=== PATIENT | female | born 1940 | race Caucasian/White ===

== ENCOUNTER → 2017-12-09 | Outpatient (CLI) | payer MEDICARE ==
--- NOTE | 2017-12-09 11:33 | CT ---
EXAMINATION TYPE: CT angio head neck DATE OF EXAM: 12/09/2017 HISTORY: Carotid stenosis COMPARISON: None CT DLP: 356 mGycm. Automated Exposure Control for Dose Reduction was Utilized. TECHNIQUE: CTA scan of the neck is performed with IV Contrast, patient injected with 65 mL of Isovue 370, axial images are obtained, coronal and sagittal reformatted images are reviewed. Three-D recons tructed images are created on an independent workstation and reviewed. FINDINGS: There is atherosclerotic change involving the distal common carotid artery and proximal rig ht ICA measuring approximately 65-70%. Mild atherosclerotic changes are seen involving the left carotid bifurcation. No definite hemodynamic stenosis. Atherosclerotic change of the aorta noted. Emphysematous changes involving the lung apices with subse gmental areas of consolidation likely related atelectasis. There is a pleural-based nodule in the lef t apex measuring 1 cm. Thyroid enhances normally. Hypertrophic and degenerative change of the spine with multilevel foramina l encroachment noted. Visualized submandibular and parotid glands are within normal limits. Visualize d portion of the orbits and intracranial structures demonstrate no abnormality. Vertebral arteries demonstrate patency. Vertebral arteries symmetric in size. IMPRESSION: 1. Findings suggest a 65-70% stenosis involving the proximal right ICA. 2. No significant hemodynamic stenosis involving the left carotid system. Mild atherosclerotic plaque noted. 3. There is a 1 cm left apical lung nodule could be correlated with dedicated CT of the chest.
== END | disposition home or self-care (01) ==
LOC: RADCTMAIN 09:37
PROVIDERS: ATTEND Surgery
DX: I65.22 Occlusion and stenosis of left carotid artery (principal)
CPT/HCPCS: 82565; 84520; 70496; 70498; 36415; Q9967

== ENCOUNTER → 2018-01-06 | Outpatient (CLI) | payer MEDICARE ==
--- NOTE | 2018-01-06 09:25 | CT ---
EXAMINATION TYPE: CT chest wo con DATE OF EXAM: 01/06/2018 COMPARISON: None HISTORY: solitary pulmonary nodule CT DLP: 584.30 mGycm, Automated exposure control for dose reduction was used. CONTRAST: Performed injected with 0 mL of Isovue 300. TECHNIQUE: Axial images were obtained at 5 mm thick sections. Reconstructed images are reviewed on [employer] computer in the coronal plane. FINDINGS: Portion of the thyroid visualized is normal. Appears be some mild compressive atelectasis within the dependent portions of the lung bases. Some ve ry subtle nodularity may be along the periphery of the right lung. Example images series 4 image 22, series 4 image 20. These demonstrate the small 2 mm peripheral densities. Some areas of pneumonitis m ay be present. Subtle area of increased density measuring 0.5 cm may be within the right middle lobe. Series 4 image 26. There is peripheral based pneumonitis change in the lateral right midlung. Series 4 image 31. Small density in the periphery of the right lung measures 0.3 cm. Series 4 image 31. The re is a 0.7 cm density within the lingula just above the diaphragm. Series 4 image 38. Compressive at electasis within the posterior medial right lung base. No enlarged mediastinal or hilar adenopathy is evident. Couple of small superior mediastinal lymph nodes are present. The ascending aorta diameter at the level of the main pulmonary artery is 3.1 cm. The main pulmonary artery diameter at the bifurcation is 2.4 cm. Coronary artery calcifications pres ent. There is a moderate size hiatal hernia present. Limited CT sections are obtained through the upper abdomen. Abdomen is essentially unremarkable. IMPRESSIONS: 1. Small peripheral right lung densities visualized on lung windows. Follow-up exam in 6 months is re commended. 2. Possible 0.7 cm nodule at the left diaphragm within the lingula. 3. Few scattered areas of pneumonitis and compressive atelectasis.
== END | disposition home or self-care (01) ==
LOC: RADCTMAIN 08:22
PROVIDERS: ATTEND Family Medicine
DX: J18.9 Pneumonia, unspecified organism (principal); J98.11 Atelectasis; J98.4 Other disorders of lung
CPT/HCPCS: 71250

== ENCOUNTER → 2018-01-22 | Outpatient (CLI) | payer MEDICARE ==
--- NOTE | 2018-01-23 10:59 | MM ---
Reason for exam: screening (asymptomatic). History: Patient is postmenopausal and has history of other cancer at age 39. Physical Findings: A clinical breast exam by your physician is recommended on an annual basis and results should be correlated with mammographic findings. MG 3D Screening Mammo W/Cad Bilateral CC and MLO view(s) were taken. No prior studies available for comparison. The breast tissue is heterogeneously dense. This may lower the sensitivity of mammography. There is a round circumscribed upper outer quadrant anterior depth left breast mass and adjacent asymmetry. The mass and asymmetry both measure 9mm. Benign appearing bilateral calcifications. No suspicious abnormality on the right. ASSESSMENT: Incomplete: need additional imaging evaluation, BI-RAD 0 RECOMMENDATION: Ultrasound of the left breast. Upper outer quadrant attention anterior depth [facility] will attempt to contact patient to return for ultrasound.
== END | disposition home or self-care (01) ==
LOC: RADMAMWWP 09:41
PROVIDERS: ATTEND Family Medicine
DX: Z12.31 Encounter for screening mammogram for malignant neoplasm of breast (principal)
CPT/HCPCS: 77063; 77067

== ENCOUNTER → 2018-02-17 | Outpatient (CLI) | payer MEDICARE ==
--- NOTE | 2018-02-17 11:33 | USB ---
Reason for exam: additional evaluation requested from abnormal screening. History: Patient is postmenopausal and has history of other cancer at age 39. Physical Findings: Nurse Summary: all soft, nodular, movable (nurse ts). US Breast Workup Limited LT Left limited breast ultrasound including focal area of concern, retroareolar and axilla demonstrates a 1.0 x 0.6 x 1.2cm cystic lesion at 12 o'clock, benign, corresponds well to the mammographic finding. These results were verbally communicated with the patient and result sheet given to the patient on 02/17/18. ASSESSMENT: Benign, BI-RAD 2 RECOMMENDATION: Return to routine screening mammogram schedule for both breasts.
== END | disposition home or self-care (01) ==
LOC: RADUSWWP 09:59
PROVIDERS: ATTEND Family Medicine
DX: R92.8 Other abnormal and inconclusive findings on diagnostic imaging of breast (principal)

== ENCOUNTER → 2019-02-14 | Outpatient (CLI) | payer MEDICARE ==
[2019-02-14 10:32] LABS: HCT 38.8 % (34.0-46.0); HGB 12.2 gm/dL (11.4-16.0); MCH 27.9 pg (25.0-35.0); MCHC 31.5 g/dL (31.0-37.0); MCV 88.5 fL (80.0-100.0); Mean Platelet Volume 7.8; Platelet Count 239 k/uL (150-450); RBC 4.38 m/uL (3.80-5.40); RDW 15.4 % (11.5-15.5); WBC 7.4 k/uL (3.8-10.6)
[2019-02-14 10:54] LABS: Magnesium 1.5 mg/dL (1.6-2.3); Potassium 5.2 mmol/L (3.5-5.1)
== END | disposition home or self-care (01) ==
LOC: LABPAT 10:13
PROVIDERS: ATTEND Internal Medicine Cardiovascular Disease
DX: Z01.812 Encounter for preprocedural laboratory examination (principal)
CPT/HCPCS: 36415; 80051; 82565; 83735; 84520; 85027

== ENCOUNTER 2019-02-16 07:17 | Day surgery (SDC) | payer MEDICARE ==
[2019-02-13 09:03] VITALS: BMI 38.9
[2019-02-16] MEDS ORDERED: SODIUM CHLORIDE 0.9% 1,000 ML in EMPTY BAG 1 BAG IV ONE (07:31)
[2019-02-16] MEDS ORDERED: NITROGLYCERIN SL TABS 0.4 MG TAB SUBLINGUAL PRN (07:31)
[2019-02-16] MEDS ORDERED: ALPRAZolam 0.25 MG TAB PO PRN (07:31)
[2019-02-16] MEDS ORDERED: ALPRAZolam 0.5 MG TAB PO PRN (07:31)
[2019-02-16] MEDS ORDERED: ATORVASTATIN 80 MG TAB PO STA (07:31)
[2019-02-16] MEDS ORDERED: ASPIRIN 325 MG TAB PO STA (07:31)
[2019-02-16 08:03] LABS: Glucose,Whole Blood 114 mg/dL (75-99)
[2019-02-16] MEDS ORDERED: fentaNYL (PF) 50 MCG/ML 2 ML AMP ONE (08:12)
[2019-02-16] MEDS ORDERED: BENZOCAINE SPRAY 1 CAN MUCOUS MEM ONE (08:20)
[2019-02-16] MEDS ORDERED: MIDAZOLAM 2 MG/2 ML VIAL IV ONE ×2 (08:30→08:38)
[2019-02-16] MEDS ORDERED: fentaNYL (PF) 50 MCG/ML 2 ML AMP IV ONE (08:30)
[2019-02-16] MEDS ORDERED: IV FLUID CONTINUATION 950 ML IV ONE (08:40)
[2019-02-16] MEDS ORDERED: LIDOCAINE 1% INJ 10MG/ML (20 ML MDV) SQ ONE (09:18)
[2019-02-16 09:39] LABS: O2 Sat Blood Gas 72.1 %
[2019-02-16 09:41] LABS: O2 Sat Blood Gas 98.5 %
[2019-02-16 09:44] LABS: O2 Sat Blood Gas 71.3 %
[2019-02-16] MEDS ORDERED: IOPAMIDOL-370 125ML BTL INJ ONE (09:53)
[2019-02-16] MEDS ORDERED: RX INFO: IV CONTRAST WAS GIVEN 1 EACH MISC MISCELLANE PRN (10:05)
[2019-02-16] MEDS ORDERED: FUROSEMIDE 10 MG/ML 4 ML VIAL ONE (10:20)
[2019-02-16] MEDS: SODIUM CHLORIDE 0.9% 1,000 ML IV SCH (10:22)
[2019-02-16] MEDS ORDERED: FUROSEMIDE 10 MG/ML 2 ML VIAL IV ONE (10:30)
--- NOTE | 2019-02-16 12:22 | P.GSCN ---
<Angelina Lorenzana - Last Filed: 02/16/19 11:56> History of Present Illness Consult date: 02/16/19 Reason for Consult: Aortic stenosis, coronary artery disease, surgical recommendations Requesting physician: Juliana Alexandre History of present illness: This is a 78-year-old somewhat mobility limited female patient who follows in the outpatient basis with Dr. Deleon. She has a previous medical history of hypertension, hyperlipidemia, carotid stenosis, vlo-snefknj-hhvzufjqo diabetes, PRN home O2 dependence, previous tobacco dependence, previous ETOH use, cervical cancer status post hysterectomy, and significant family history of cancer. She does use a cane for mobility, and does admit to falls in the past. Apparently she has been having progressive shortness of breath and intermittent chest pressure over the previous one year. She also admits to occasional dizziness, denies any nausea, vomiting, fevers, sick contacts. She has been followed by Dr. Sosa on an outpatient basis for a known pulmonary lung nodule, felt to be benign at this time. She presented to [facility] September 2018 for evaluation and treatment. She did have transthoracic echocardiogram completed in December 2018 demonstrating normal LV function with EF 55%, calcified aortic valve with severe aortic stenosis, valve area 0.69 cm, peak/mean gradient of 76/48 mmHg, and mild to moderate mitral regurgitation. She was recommended to undergo transesophageal echocardiogram and heart catheterization which were completed today. The transesophageal echocardiogram demonstrated severe aortic stenosis with valve area 0.7-0.8 cm, peak/mean gradient 60/32 mmHg, and moderate to severe mitral regurgitation. Heart catheterization revealed ostial RCA stenosis 80%, and first diagonal artery with 80% stenosis. Due to her symptoms and diagnostic findings Dr. Moses from cardiothoracic surgery was consulted for surgical recommendations. Review of Systems Review of systems was completed and was negative except as noted. - Cardiovascular Reports chest pain, Reports decreased exercise tolerance, Reports dyspnea on exertion, Reports leg edema, Reports shortness of breath - Respiratory Reports dyspnea, Reports home oxygen - Musculoskeletal Musculoskeleta Comment(s): Ambulates with cane Reports frequent falls Past Medical History Past Medical History: Coronary Artery Disease (CAD), Cancer, Diabetes Mellitus, GERD/Reflux, Hyperlipidemia, Hypertension, Osteoarthritis (OA) Additional Past Medical History / Comment(s): SEE DR ALEXANDRE'S HISTORY AND PHYSICAL FOR CARDIAC HISTORY . USES OXYGEN AT NIGHT, CERVICAL CANCER History of Any Multi-Drug Resistant Organisms: None Reported Past Surgical History: Hysterectomy, Tonsillectomy Additional Past Surgical History / Comment(s): CATARACT SURGERY WITH IMPLANT- BILATERAL Past Anesthesia/Blood Transfusion Reactions: Previous Problems w/ Anesthesia Additional Past Anesthesia/Blood Transfusion Reaction / Comm: PATIENTS STATES BLOOD PRESSURE GOES DOWN AND SHAKES AND VERY ANXIOUS WHEN SHE WAKES UP" Past Psychological History: No Psychological Hx Reported Smoking Status: Former smoker Past Alcohol Use History: None Reported Past Drug Use History: None Reported - Past Family History Mother Family Medical History: Cancer Father Family Medical History: Unable to Obtain Sister(s) Family Medical History: Cancer Medications and Allergies Home Medications Medication Instructions Recorded Confirmed Type Aspirin 81 mg PO DAILY 02/13/19 02/16/19 History Atorvastatin [Lipitor] 40 mg PO HS 02/13/19 02/16/19 History Cholecalciferol [Vitamin D3 (25 1,000 unit PO DAILY 02/13/19 02/16/19 History Mcg = 1000 Iu)] Gabapentin 600 mg PO TID 02/13/19 02/16/19 History Glimepiride [Amaryl] 4 mg PO DAILY 02/13/19 02/16/19 History Magnesium 400 mg PO DAILY 02/13/19 02/16/19 History Meloxicam [Mobic] 15 mg PO DAILY 02/13/19 02/16/19 History Multivitamins, Thera [Multivitamin 1 tab PO DAILY 02/13/19 02/16/19 History (formulary)] [place]-3/Dha/Epa/Fish Oil [Fish Oil 1 each PO DAILY 02/13/19 02/16/19 History EC 1,200 mg Softgel] Omeprazole [PriLOSEC] 20 mg PO AC-BRKFST 02/13/19 02/16/19 History Ramipril [Altace] 5 mg PO DAILY 02/13/19 02/16/19 History metFORMIN HCL 1,000 mg PO BID 02/13/19 02/16/19 History Furosemide [Lasix] 20 mg PO DAILY #30 tab 02/16/19 Rx Isosorbide Mononitrate ER [Imdur] 15 mg PO DAILY #30 dose 02/16/19 Rx Metoprolol Tartrate [Lopressor] 12.5 mg PO BID #60 dose 02/16/19 Rx Potassium Chloride 8 meq PO DAILY #30 capsule.er 02/16/19 Rx Allergies Allergy/AdvReac Type Severity Reaction Status Date / Time Penicillins Allergy Rapid Verified 02/13/19 08:10 Heart Rate,SWELLING Surgical - Exam Vital Signs Temp Pulse Resp BP Pulse Ox 98.2 F 108 H 18 180/81 96 02/16/19 07:39 02/16/19 07:39 02/16/19 07:39 02/16/19 07:39 02/16/19 07:39 - General well developed, well nourished, no distress, no pain, obese - Eyes normal ocular movement - ENT no hearing loss, dentures - Neck no masses, trachea midline carotid bruit: bilateral - Respiratory Lungs sounds clear bilaterally. Respirations even, nonlabored. Currently on 3 L nasal cannula with oxygen saturation 97%. No chest wall deformities. No clubbing or cyanosis present. - Cardiovascular Reduced S1, S2 present. Loud systolic murmur present. Regular rate and rhythm, sinus rhythm on telemetry. Palpable peripheral pulses bilaterally. Trace bilateral lower extremity nonpitting edema present. No calf pain or tenderness noted. Multiple varicosities noted to bilateral lower extremities. - Abdomen Abdomen: soft, non tender, bowel sounds - Genitourinary Deferred - Rectum Deferred - Integumentary no rash, no growths - Neurologic normal coordination, normal sensation - Musculoskeletal normal posture - Psychiatric oriented to time, oriented to person, oriented to place, speech is normal, memory intact Results - Labs Abnormal Lab Results - Last 24 Hours (Table) 02/16/19 Range/Units 07:45 POC Glucose (mg/dL) 114 H (75-99) mg/dL - Imaging Additional studies: Heart catheterization and transesophageal echocardiogram films reviewed Assessment and Plan Assessment: 1. Severe aortic stenosis, aortic valve area 0.7-0.8 cm, peak/mean gradient 60/32 mmHg on ABENA 2. Moderate to severe mitral regurgitation 3. Two-vessel coronary artery disease 4. Hypertension 5. Hyperlipidemia 6. Carotid stenosis 7. Uwf-edjzsej-hgcoxyqnd diabetes mellitus, recent hemoglobin A1c 6.9% 8. Home O2 dependence PRN 9. Known pulmonary lung nodule, felt to be benign, follows with Dr. Sosa 10. Previous tobacco dependence 11. Previously ETOH 12. Cervical cancer status post hysterectomy 13. Family history significant for cancer Plan: The patient was seen and examined at the bedside in the extended stay unit. Chart/diagnostics were reviewed including heart catheterization films and transesophageal echocardiograms films. The case will be discussed in detail with Dr. Moses. The usual perioperative course of surgical valve replacement as well as transcatheter aortic valve replacement was discussed in detail with the patient and her son at the bedside, risks and benefits were reviewed, all questions were answered. Will review the films with Dr. Moses and make recommendations for surgery versus TAVR. The patient has had most of her pr eoperative testing completed within the last 1-2 months. We will calculate STS risk score. Continue to optimize medical therapy. More recommendations to follow. Thank you Dr. Alexandre for this consult. We look forward to working with you in the care of your patient. Time with Patient: Greater than 30 <Jadiel Moses - Last Filed: 02/18/19 12:32> Surgical - Exam Vital Signs Temp Pulse Resp BP Pulse Ox 98.2 F 108 H 18 180/81 96 02/16/19 07:39 02/16/19 07:39 02/16/19 07:39 02/16/19 07:39 02/16/19 07:39 Results - Labs 02/17/19 05:36 02/17/19 05:36 Assessment and Plan Assessment: Patient likely candidate for TAVR. Coronary disease seems moderate in the left system. The RCA is non-dominant. Discussed with Dr Abad, patient, patient's son. All in agreement to pursue TAVR w/u at [facility] (rather than [facility]).
--- NOTE | 2019-02-16 16:41 | US ---
EXAMINATION TYPE: US carotid duplex BILAT DATE OF EXAM: 02/16/2019 COMPARISON: CTA 12/09/2017 CLINICAL HISTORY: Pre-Op Cardiac Surgery. EXAM MEASUREMENTS: RIGHT: Peak Systolic Velocity (PSV) cm/sec ----- Right CCA: 95.2 ----- Right ICA: 224.3 ----- Right ECA: 117.7 ICA/CCA ratio: 2.4 RIGHT: End Diastole cm/sec ----- Right CCA: 13.8 ----- Right ICA: 32.7 ----- Right ECA: 0.0 LEFT: Peak Systolic Velocity (PSV) cm/sec ----- Left CCA: 83.1 ----- Left ICA: 136.6 ----- Left ECA: 122.1 ICA/CCA ratio: 1.6 LEFT: End Diastole cm/sec ----- Left CCA: 12.8 ----- Left ICA: 26.8 ----- Left ECA: 0.0 VERTEBRALS (direction of flow): Right Vertebral: Antegrade Left Vertebral: Antegrade Rhythm: Normal Elevated velocities: right mid ICA, right distal ICA, and left proximal ICA, right ICA/CCA ratio 2.4 Grayscale, color Doppler, spectral Doppler imaging performed of the carotid arteries. Atheromatous ch anges are present at the carotid bulbs extending 3 internal carotid arteries bilaterally. Waveform an alysis suggests internal carotid artery hemodynamic significant stenosis on the right, there is loss of the systolic window, spectral broadening present. Only mildly elevated peak systolic velocity in t he proximal internal carotid artery on the left. IMPRESSION: Hemodynamic significant stenosis of the proximal internal carotid artery on the right cor responding to approximately 50-69% diameter reduction by Doppler criteria, an indirect measurement of carotid stenosis, similar to prior carotid CTA Criteria for Assigning % of Stenosis / Diameter reduction (Estimation based on the indirect measurements of the internal carotid artery velocities (ICA PSV). 1. Normal (no stenosis)=ICA PSV < 125 cm/s: ratio < 2.0: ICA EDV<40 cm/s. 2. Less than 50% stenosis=ICA PSV < 125 cm/s: ratio < 2.0: ICA EDV<40 cm/s. 3. 50 to 69% stenosis=ICA PSV of 125 to 230 cm/s: ration 2.0 ? 4.0: ICA EDV 40-100 cm/s. 4. Greater than 70% stenosis to near occlusion= ICA PSV > 230 cm/s: ratio > 4.0: ICA EDV > 100 cm/s. 5. Near occlusion= ICA PSV velocities may be low or undetectable: variable ratio and ICA EDV. 6. Total occlusion=unable to detect flow.
[2019-02-16] MEDS: GABAPENTIN 300 MG CAP PO SCH ×2 (16:42→21:24)
[2019-02-16 17:23] LABS: Glucose,Whole Blood 163 mg/dL (75-99)
[2019-02-16] MEDS: GLIMEPIRIDE 4 MG TAB PO SCH (17:39)
[2019-02-16 20:48] LABS: Glucose,Whole Blood 142 mg/dL (75-99)
[2019-02-16] MEDS ORDERED: ATORVASTATIN 40 MG TAB PO SCH (21:00)
--- NOTE | 2019-02-16 23:31 | XR ---
EXAMINATION TYPE: XR chest 2V DATE OF EXAM: 02/16/2019 COMPARISON: 11/04/2017 HISTORY: Preop cardiac surgery TECHNIQUE: Frontal and lateral views of the chest are obtained. FINDINGS: There is no heart failure nor confluent pneumonic infiltrate. Costophrenic angles are goyo r. Bony thorax is intact. There is minor spurring in the thoracic spine. There is mild pleural scarri ng at the lung apices unchanged. IMPRESSION: No active cardiopulmonary disease. Normal heart. No change.
[2019-02-17 05:15] VITALS: RESP 18
[2019-02-17 06:07] LABS: Basophils # (A) 0.1 k/uL (0-0.2); Basophils % (A) 1 %; Eosinophils # (A) 0.3 k/uL (0-0.7); Eosinophils % (A) 5 %; HCT 37.1 % (34.0-46.0); HGB 12.1 gm/dL (11.4-16.0); Lymphocytes # (A) 1.5 k/uL (1.0-4.8); Lymphocytes % (A) 24 %; MCH 28.5 pg (25.0-35.0); MCHC 32.5 g/dL (31.0-37.0); MCV 87.7 fL (80.0-100.0); Mean Platelet Volume 7.5; Monocytes # (A) 0.4 k/uL (0-1.0); Monocytes % (A) 7 %; Neutrophils # (A) 3.8 k/uL (1.3-7.7); Neutrophils % (A) 62 %; Platelet Count 214 k/uL (150-450); RBC 4.23 m/uL (3.80-5.40); RDW 15.2 % (11.5-15.5); WBC 6.1 k/uL (3.8-10.6)
[2019-02-17 06:12] LABS: Glucose,Whole Blood 135 mg/dL (75-99)
[2019-02-17 06:19] LABS: Albumin 3.8 g/dL (3.5-5.0); Calcium 9.4 mg/dL (8.4-10.2); Magnesium 1.5 mg/dL (1.6-2.3); Potassium 3.9 mmol/L (3.5-5.1); Total Bilirubin 0.5 mg/dL (0.2-1.3); Total Protein 6.8 g/dL (6.3-8.2)
[2019-02-17] MEDS: SODIUM CHLORIDE 0.9% 1,000 ML IV SCH (06:38)
[2019-02-17] MEDS ORDERED: PANTOPRAZOLE 40 MG TABLET PO SCH (07:30)
[2019-02-17] MEDS ORDERED: MELOXICAM 7.5 MG TAB PO SCH (09:00)
[2019-02-17] MEDS ORDERED: MULTIVITAMINS, THERA 1 EACH TAB PO SCH (09:00)
[2019-02-17] MEDS ORDERED: CHOLECALCIFEROL 1,000 UNIT TAB PO SCH (09:00)
[2019-02-17] MEDS ORDERED: OMEGA PO SCH (09:00)
[2019-02-17] MEDS ORDERED: FISH OIL PO SCH (09:00)
[2019-02-17] MEDS ORDERED: ASPIRIN 81 MG PO SCH (09:00)
[2019-02-17] MEDS ORDERED: MAGNESIUM OXIDE 400 MG TAB PO SCH (09:00)
[2019-02-17] MEDS ORDERED: LISINOPRIL 20 MG TAB PO SCH (09:00)
[2019-02-17] MEDS ORDERED: EPA PO SCH (09:00)
[2019-02-17] MEDS ORDERED: DHA PO SCH (09:00)
[2019-02-17] MEDS: GLIMEPIRIDE 4 MG TAB PO SCH (09:19)
[2019-02-17] MEDS: GABAPENTIN 300 MG CAP PO SCH (09:19)
[2019-02-17 09:51] VITALS: BP 142/65; PULSE 91; TEMP 98.2
[2019-02-17 12:40] LABS: Hepatitis A Antibody IgM Non-Reactive (Non-Reactive); Hepatitis B Core IgM Non-Reactive (Non-Reactive); Hepatitis B Surface Antigen Non-Reactive (Non-Reactive); Hepatitis C IgG Antibody Non-Reactive (Non-Reactive)
--- NOTE | 2019-02-23 17:52 | P.TEE ---
Date of Procedure: 02/16/19 Preoperative Diagnosis: Severe aortic stenosis Postoperative Diagnosis: Severe aortic stenosis, moderate to severe mitral regurgitation Description of Procedure(s): INDICATION: This is a 78-year-old female with history of dizziness was found to have severe aortic stenosis by transthoracic aortogram. Patient is advised to have ABENA examination for further evaluation. CONSENT: Informed verbal consent is obtained from the patient PROCEDURE: Patient was brought to the lab in a fasting state. She was prepped and draped in the usual fashion. The throat was sprayed with Cetacaine. A lubricated Omni probe was introduced into the oropharynx and is advanced into the esophagus. Patient was given fentanyl 50 g and Versed 3 mg for sedation. Multiple views were obtained from both esophagus and stomach. Patient tolerated the procedure well. FINDINGS: The aortic valve is heavily calcified and appears to be tricuspid. The valve area by planimetry was calculated is 0.7 2.8 cm. A peak gradient of 60 with a mean of 32 was obtained across the aortic valve consistent with severe aortic stenosis. There was no clot in the left atrial appendage. Saline contrast bubble injection was also performed. No evidence of PFO. Color, pulsed and continuous for Doppler studies were performed. There is biatrial enlargement. There is moderate to severe mitral regurgitation with preserved value of 0.7-0.8. LV function appeared preserved. There is mild to moderate plaque in the aorta IMPRESSION: #1. Critical aortic stenosis with mild to moderate aortic regurgitation #2. Moderate to severe mitral regurgitation #3. No clot in the left atrial appendage #4. Preserved LV function PLAN:. Proceed with cardiac catheterization. Patient may need aortic valve replacement.
--- NOTE | 2019-02-23 18:02 | P.CARDCATH ---
Date of Procedure: 02/16/19 Preoperative Diagnosis: Severe aortic stenosis Postoperative Diagnosis: The same with moderate pulmonary hypertension Procedure(s) Performed: Right and left heart catheterization Description of Procedure: HISTORY: This is a 78-year-old female with history of dizziness, hypertension who was found to have evidence of aortic stenosis of severe degree, and also moderate to severe mitral regurgitation. Patient is advised to have a cardiac catheterization for definitive diagnosis. Patient underwent both right and left heart catheterization CONSENT:I have discussed the risks, benefits and alternative therapies for the above-mentioned procedure and for both sedation/analgesia as well as necessary blood product administration, if indicated, as they pertain to this patient. The patient has indicated understanding and acceptance of the risks and procedures discussed. PROCEDURE: Patient was brought to the lab in a fasting state. Patient was given IV sedation for ABENA examination. No further sedation was given for cardiac catheterization. Right heart catheterization: The right groin is infiltrated with lidocaine and right femoral vein was entered using Seldinger technique. The right heart catheterization was performed with a right Leeanna catheter. Patient tolerated the procedure well. Hemostasis was obtained with the manual compression at the end of the procedure. Left heart catheterization: The right femoral artery was entered using Seldinger technique, after giving local anesthesia. A 6-Polish sheath was advanced and placed in the common femoral artery.. selective coronary arteriography and left ventriculography was performed. Patient tolerated the procedure well. Femoral angiogram was performed and Angio-Seal was applied for hemostasis. No immediate complications were noted and patient was transferred to [facility] in a stable condition Conscious Sedation: Versed 0mg Fentanyl 0 g Duration 40 minutes minutes HEMODYNAMICS:. Right heart catheterization: The right atrial pressure was 7. R ight ventricle pressure was 50/8. The pulmonary artery pressure is 52/28 with mean of 37. The pulmonary wedge pressure was about 22. The cardiac output by thermodilution method was 5.87 and by Sangeetha method was 4.58. The pressure difference was 61 mm. The mean value is inaccurate. The valve area is about 0.7-0.9 SELECTIVE CORONARY ARTERIOGRAPHY: LEFT MAIN: Short and divides immediately into left anterior descending and left circumflex THE LEFT ANTERIOR DESCENDING CORONARY ARTERY:. This is a fair caliber vessel with mild diffuse disease in the proximal portion with about 30-40% lesions. It gives rise to moderate diagonal branch which has about 95% stenosis in the proximal portion THE LEFT CIRCUMFLEX AND IS CORONARY ARTERY:. This is a good caliber vessel giving rise to 2 OM branches. There is mild 30-40% lesion in the OM branch. No critical lesions are noted in the circumflex system THE RIGHT CORONARY ARTERY: This is a nondominant vessel with critical lesion involving the ostium and symmetric total occluded in the midportion. The distal portion seen by collateral flow LEFT VENTRICULOGRAPHY: Not performed FINAL IMPRESSION:. #1. Critical aortic stenosis. #2. Moderate pulmonary hypertension #3. Coronary artery disease with total occlusion of the mid RCA which is nondominant vessel. Critical lesion involving the diagonal. Mild diffuse disease otherwise PLAN:. Continuation maximum medical therapy. Should be considered for aortic valve replacement. Patient also has moderate to severe mitral regurgitation which may improve after aortic valve surgery. Continued medical therapy for coronary artery disease and possible stent placement of the diagonal if necessary. PROGNOSIS: Guarded
== END 2019-02-17 10:32 | disposition home or self-care (01) ==
LOC: CATHCVL 07:17 → 3SCARD 14:03 → CATHCVL 02-17 10:32
PROVIDERS: ATTEND Internal Medicine Cardiovascular Disease
DX: I08.0 Rheumatic disorders of both mitral and aortic valves (principal); I25.10 Atherosclerotic heart disease of native coronary artery without angina pectoris; I25.82 Chronic total occlusion of coronary artery; I27.20 Pulmonary hypertension, unspecified; I65.21 Occlusion and stenosis of right carotid artery; I10 Essential (primary) hypertension; E78.5 Hyperlipidemia, unspecified; I65.23 Occlusion and stenosis of bilateral carotid arteries; E11.9 Type 2 diabetes mellitus without complications; R91.1 Solitary pulmonary nodule; E78.00 Pure hypercholesterolemia, unspecified; F10.21 Alcohol dependence, in remission; K21.9 Gastro-esophageal reflux disease without esophagitis; M19.90 Unspecified osteoarthritis, unspecified site; E66.9 Obesity, unspecified; Z68.37 Body mass index [BMI] 37.0-37.9, adult; Z91.81 History of falling; Z99.81 Dependence on supplemental oxygen; Z87.891 Personal history of nicotine dependence; Z79.82 Long term (current) use of aspirin; Z79.899 Other long term (current) drug therapy; Z79.84 Long term (current) use of oral hypoglycemic drugs; Z79.1 Long term (current) use of non-steroidal anti-inflammatories (NSAID); Z88.0 Allergy status to penicillin; Z90.710 Acquired absence of both cervix and uterus; Z85.41 Personal history of malignant neoplasm of cervix uteri; Z99.89 Dependence on other enabling machines and devices; Z90.89 Acquired absence of other organs; Z98.49 Cataract extraction status, unspecified eye; Z96.1 Presence of intraocular lens; Z87.898 Personal history of other specified conditions; Z80.9 Family history of malignant neoplasm, unspecified
CPT/HCPCS: 94150; 93312; 93320; 93325; 93460; 80053; 80074; 85018; 82810; 83735; 85025; 71046; 93880; C1769 ×3; C1760; C1894 ×3; J2250; J1940; J2001; J3010; Q9967